=== PATIENT | male | born 1990 | race Caucasian/White ===

== ENCOUNTER 2016-08-01 08:14 | Emergency (ER) | payer OTHER ==
[2016-08-01 08:24] VITALS: BP 147/99
--- NOTE | 2016-08-01 08:34 | EDM.PDOC ---
ED HPI GENERAL MEDICAL PROBLEM - General Chief Complaint: Upper Extremity Injury/Pain Stated Complaint: box fell on arm Time Seen by Provider: 08/01/16 08:28 Source of Information: Reports: Patient, RN, RN Notes Reviewed History Limitations: Reports: No Limitations - History of Present Illness INITIAL COMMENTS - FREE TEXT/NARRATIVE: Patient presents to the ED at [facility] after he sustained a crush injury to the right arm at work. Patient states he was unloading boxes from a [employer] trailer when his elbow got stuck against a wall as a 45-50 pound box landed on his right forearm and right wrist. Patient states he feels some tingling of the right fingers. No numbness or paresthesia of the right upper extremity. No previous injury or trauma to the right arm/wrist. No previous right upper extremity surgeries. Onset: Today Onset Date: 08/01/16 Onset Time: 08:00 Right Wrist Pain Score (Numeric/FACES): 6 - Related Data Allergies Allergy/AdvReac Type Severity Reaction Status Date / Time No Known Allergies Allergy Verified 08/01/16 08:26 Home Meds: Home Meds . [No Known Home Meds] 08/01/16 [History] Past Medical History - Past Health History Medical/Surgical History: Denies Medical/Surgical History Social & Family History - Tobacco Use Smoking Status *Q: Current Every Day Smoker Years of Tobacco use: 8 Packs/Tins Daily: 0.1 Review of Systems - Review of Systems Review Of Systems: See Below Constitutional: Denies: Chills, Fever, Weakness Respiratory: Denies: Shortness of Breath, Cough Cardiovascular: Denies: Chest Pain, Palpitations Musculoskeletal: Reports: Arm Pain, Muscle Pain, Muscle Stiffness Skin: Reports: Wound (abrasion to volar surface of right wrist) Neurological: Reports: Tingling. Denies: Numbness, Paresthesia ED EXAM, GENERAL - Physical Exam Exam: See Below Exam Limited By: No Limitations General Appearance: Alert, No Apparent Distress Respiratory/Chest: No Respiratory Distress, Lungs Clear, Normal Breath Sounds Cardiovascular: Regular Rate, Rhythm Peripheral Pulses: 2+: Radial (L), Radial (R) Extremities: Normal Capillary Refill, Limited Range of Motion (wrist, right) Neurological: Alert, Oriented Skin Exam: Warm, Dry, Normal Color, No Rash, Wound/Incision (abrasion to volar surface right wrist) Course - Vital Signs Last Recorded V/S: Last Vital Signs Temp 36.8 C 08/01/16 08:18 Pulse 81 08/01/16 08:18 Resp 14 08/01/16 08:18 BP 147/99 H 08/01/16 08:18 Pulse Ox 97 08/01/16 08:18 - Orders/Labs/Meds Orders: Active Orders 24 hr Category Date Time Status Forearm 2V Rt [CR] Stat Exams 08/01/16 08:28 Ordered Wrist Comp Min 3V Rt [CR] Stat Exams 08/01/16 08:28 Taken Departure - Departure Time of Disposition: 09:13 Disposition: Home, Self-Care 01 Condition: Good Clinical Impression: Encounter related to worker's compensation claim, Forearm tendonitis Crushing injury of forearm, right Qualifiers: Encounter type: initial encounter Qualified Code(s): S57.81XA - Crushing injury of right forearm, initial encounter Abrasion of wrist, right Qualifiers: Encounter type: initial encounter Qualified Code(s): S60.811A - Abrasion of right wrist, initial encounter - Discharge Information Instructions: Wrist Pain, Abrasion, [id number] Referrals: PCP,None [Primary Care Provider] - Forms: ED Department Discharge Additional Instructions: 1. Stay well hydrated and rest 2. Follow working restrictions on forms, these are in effect until 08/08/2016 3. Rest, elevate, and ice right forearm today 4. May alternate Tylenol/Advil as needed for discomfort 5. See your Primary as symptoms warrant - Problem List Review Problem List Initiated/Reviewed/Updated: Yes - My Orders Last 24 Hours: My Active Orders 08/01/16 08:28 Forearm 2V Rt [CR] Stat Wrist Comp Min 3V Rt [CR] Stat - Assessment/Plan Last 24 Hours: My Active Orders 08/01/16 08:28 Forearm 2V Rt [CR] Stat Wrist Comp Min 3V Rt [CR] Stat
== END 2016-08-01 09:19 | disposition home or self-care (01) ==
LOC: VM.ED 08:14
DX: S57.81XA Crushing injury of right forearm, initial encounter (principal); S60.811A Abrasion of right wrist, initial encounter; M77.9 Enthesopathy, unspecified; F17.210 Nicotine dependence, cigarettes, uncomplicated; W20.8XXA Other cause of strike by thrown, projected or falling object, initial encounter; Y93.89 Activity, other specified; Y99.0 Civilian activity done for income or pay
CPT/HCPCS: 73090-RT; 73110-RT; 99283

== ENCOUNTER 2020-08-29 10:30 | Emergency (ER) | payer OTHER ==
[2020-08-29] MEDS ORDERED: Sodium Chloride 0.9% 10 ML Syringe FLUSH PRN (10:49)
--- NOTE | 2020-08-29 10:56 | EDM.PDOC ---
ED HPI GENERAL MEDICAL PROBLEM - General Time Seen by Provider: 08/29/20 10:41 Source of Information: Reports: Patient, Family - History of Present Illness INITIAL COMMENTS - FREE TEXT/NARRATIVE: David is a 30 y/o male who is sent the ER from the clinic. He had showed up there to be checked out. Apparently last night he had an episode of confusion and he had thrown his supper on the floor. His significant other had reported he was lying in bed eating a TV dinner about 7 pm and then when she returned to the bedroom he was confused and the food was on the floor. Patient denies recalling any of this. Then this AM about 0442, family reported that he woke up and started seizing in bed. The seizure activity lasted about 1 minute and then he was very drowsy. He does report a seizure as a child, but nothing since then. He did have an incident last Friday at work where he hit his head on a disc very hard and he really felt "dizzy and nauseated following". - Related Data Allergies Allergy/AdvReac Type Severity Reaction Status Date / Time No Known Allergies Allergy Verified 08/01/16 08:26 Home Meds: Home Meds levETIRAcetam [Keppra] 750 mg PO BID #60 tab 08/29/20 [Rx] Past Medical History - Past Health History Medical/Surgical History: Denies Medical/Surgical History Review of Systems - Review of Systems Review Of Systems: See Below Constitutional: Reports: No Symptoms Eyes: Reports: No Symptoms Ears: Reports: No Symptoms Nose: Reports: No Symptoms Mouth/Throat: Reports: No Symptoms Respiratory: Reports: No Symptoms Cardiovascular: Reports: No Symptoms GI/Abdominal: Reports: No Symptoms Genitourinary: Reports: No Symptoms Musculoskeletal: Reports: No Symptoms Skin: Reports: No Symptoms Neurological: Reports: Confusion, Other (Seizure, Amnesia) Psychiatric: Reports: No Symptoms ED EXAM, GENERAL - Physical Exam Exam: See Below Exam Limited By: No Limitations General Appearance: Alert, WD/WN, No Apparent Distress (Adult male, ambulated into the ER) Ears: Normal External Exam, Normal Canal, Hearing Grossly Normal, Normal TMs Nose: Normal Inspection, Normal Mucosa Throat/Mouth: Normal Inspection, Normal Lips, Normal Teeth, Normal Voice Head: Atraumatic, Normocephalic Neck: Normal Inspection, Supple, Non-Tender Respiratory/Chest: No Respiratory Distress, Lungs Clear, Chest Non-Tender Cardiovascular: Normal Peripheral Pulses, Regular Rate, Rhythm, No Murmur GI/Abdominal: Normal Bowel Sounds, Soft, Non-Tender (Male) Exam: Deferred Rectal (Males) Exam: Deferred Back Exam: Normal Inspection, Full Range of Motion Extremities: Normal Inspection, Normal Range of Motion, No Pedal Edema, Normal Capillary Refill Neurological: Alert, Oriented, CN II-XII Intact, Normal Cognition, Normal Gait, No Motor/Sensory Deficits Psychiatric: Normal Affect, Normal Mood Skin Exam: Warm, Dry, Intact, Normal Color #1 Interpretation EKG Date: 08/29/20 Time: 10:48 Rhythm: NSR Rate (Beats/Min): 73 [place]: Normal P-Wave: Present QT: Normal Comparison: NA - No Prior EKG EKG Interpretation Comments: NSR Course - Vital Signs Text/Narrative:: 1041 The patient was a seen by the DIRECTOR OF [employer]ATIONAL SALES. Labs, EKG, and Head CT ordered. 1220 No seizure activity noted in ER. Some labs returning. CBC neg, CMP neg, Mg=2.1, TSH=2.053, CRP=<0.2, Troponin I=8, EKG neg. Remaining labs pending. 1420 [facility] contacted and Neurologist litigation attorney, Dr Gonzalez, consulted. Reviewed CT results with Dr Gonzalez and course of events. She advises that we start him on Keppra 750mg po BID and then have him follow up with his PCP to set him up for an Brain MRI With and Without contrast to assess the fluid noted on the CT. Also set him up for an EEG and then get him a referral appt to see Neurology. Discussed discharge instructions with the patient and his family and he left the ER in stable condition. No seizure activity noted while here in the ER. Last Recorded V/S: Last Vital Signs Temp 36.7 C 08/29/20 10:45 Pulse 80 08/29/20 14:26 Resp 18 08/29/20 14:26 BP 137/80 08/29/20 14:26 Pulse Ox 97 08/29/20 14:26 - Orders/Labs/Meds Orders: Active Orders 24 hr Category Date Time Status EKG Documentation Completion [RC] STAT Care 08/29/20 10:48 Active Sodium Chloride 0.9% [Saline Flush] Med 08/29/20 10:49 Active 10 ml FLUSH ASDIRECTED PRN Saline Lock Insert [OM.PC] Stat Oth 08/29/20 10:48 Ordered Medication Orders Sodium Chloride (Sodium Chloride 0.9% 10 Ml Syringe) 10 ml FLUSH ASDIRECTED PRN PRN Reason: Keep Vein Open Labs: Laboratory Tests 08/29/20 08/29/20 08/29/20 Range/Units 11:10 11:10 12:44 WBC 7.5 (4.0-10.0) x10^3/uL RBC 5.29 (4.5-6.0) x10^6/uL Hgb 14.9 (14.0-18.0) g/dL Hct 43.4 (40.0-52.0) % MCV 82.0 (78.0-93.0) fL MCH 28.2 (26.0-32.0) pg MCHC 34.3 (32.0-36.0) g/dL RDW Coeff of Joy 14.1 (10.0-15.0) % Plt Count 238 (130-400) x10^3/uL Neut % (Auto) 60.7 (50.0-80.0) % Lymph % (Auto) 28.0 (25.0-50.0) % [place] % (Auto) 8.3 (2.0-11.0) % Eos % (Auto) 2.7 (0.0-4.0) % Baso % (Auto) 0.3 (0.2-1.2) % Sodium 140 (136-145) mmol/L Potassium 4.1 (3.5-5.1) mmol/L Chloride 105 (98-107) mmol/L Carbon Dioxide 30 (21-32) mmol/L Anion Gap 9.1 (5-15) mmol/L BUN 13 (7-18) mg/dL Creatinine 1.0 (0.70-1.30) mg/dL Est Cr Clr Drug Dosing TNP Estimated GFR (MDRD) > 60 Glucose 111 H (70-99) mg/dL Calcium 8.5 (8.5-10.1) mg/dL Corrected Calcium 8.7 (8.5-10.1) mg/dL Magnesium 2.1 (1.8-2.4) mg/dL Total Bilirubin 0.3 (0.2-1.0) mg/dL AST 21 (15-37) U/L ALT 56 (16-63) U/L Alkaline Phosphatase 61 (46-116) U/L Troponin I High Sens 8 (<=76) ng/L C-Reactive Protein < 0.2 (<=0.9) mg/dL Total Protein 7.8 (6.4-8.2) g/dL Albumin 3.7 (3.4-5.0) g/dL Globulin 4.1 Albumin/Globulin Ratio 0.90 TSH, Ultra Sensitive 2.053 (0.358-3.74) uIU/mL Urine Color Yellow (YELLOW) Urine Appearance Clear (CLEAR) Urine pH 5.5 (5.0-8.0) Ur Specific [place] >=1.030 Urine Protein Negative (NEGATIVE) mg/dL Urine Glucose (UA) Negative (NEGATIVE) mg/dL Urine Ketones Negative (NEGATIVE) mg/dL Urine Occult Blood Negative (NEGATIVE) Urine Nitrite Negative (NEGATIVE) Urine Bilirubin Negative (NEGATIVE) Urine Urobilinogen 0.2 (0.2) EU/dL Ur Leukocyte Esterase Negative (NEGATIVE) Urine Opiates Screen (NEGATIVE) Ur Buprenorphine Scrn (NEGATIVE) Ur Oxycodone Screen (NEGATIVE) Urine Methadone Screen (NEGATIVE) Ur Barbituates Screen (NEGATIVE) Ur Phencyclidine Scrn (NEGATIVE) Ur Amphetamines Screen (NEGATIVE) U Methamphetamines Scrn (NEGATIVE) Urine MDMA Screen (NEGATIVE) U Benzodiazepines Scrn (NEGATIVE) Urine Cocaine Screen (NEGATIVE) U Marijuana (THC) Screen (NEGATIVE) Ethyl Alcohol < 3 (0-3) mg/dL 08/29/20 Range/Units 12:44 WBC (4.0-10.0) x10^3/uL RBC (4.5-6.0) x10^6/uL Hgb (14.0-18.0) g/dL Hct (40.0-52.0) % MCV (78.0-93.0) fL MCH (26.0-32.0) pg MCHC (32.0-36.0) g/dL RDW Coeff of Joy (10.0-15.0) % Plt Count (130-400) x10^3/uL Neut % (Auto) (50.0-80.0) % Lymph % (Auto) (25.0-50.0) % [place] % (Auto) (2.0-11.0) % Eos % (Auto) (0.0-4.0) % Baso % (Auto) (0.2-1.2) % Sodium (136-145) mmol/L Potassium (3.5-5.1) mmol/L Chloride (98-107) mmol/L Carbon Dioxide (21-32) mmol/L Anion Gap (5-15) mmol/L BUN (7-18) mg/dL Creatinine (0.70-1.30) mg/dL Est Cr Clr Drug Dosing Estimated GFR (MDRD) Glucose (70-99) mg/dL Calcium (8.5-10.1) mg/dL Corrected Calcium (8.5-10.1) mg/dL Magnesium (1.8-2.4) mg/dL Total Bilirubin (0.2-1.0) mg/dL AST (15-37) U/L ALT (16-63) U/L Alkaline Phosphatase (46-116) U/L Troponin I High Sens (<=76) ng/L C-Reactive Protein (<=0.9) mg/dL Total Protein (6.4-8.2) g/dL Albumin (3.4-5.0) g/dL Globulin Albumin/Globulin Ratio TSH, Ultra Sensitive (0.358-3.74) uIU/mL Urine Color (YELLOW) Urine Appearance (CLEAR) Urine pH (5.0-8.0) Ur Specific [place] Urine Protein (NEGATIVE) mg/dL Urine Glucose (UA) (NEGATIVE) mg/dL Urine Ketones (NEGATIVE) mg/dL Urine Occult Blood (NEGATIVE) Urine Nitrite (NEGATIVE) Urine Bilirubin (NEGATIVE) Urine Urobilinogen (0.2) EU/dL Ur Leukocyte Esterase (NEGATIVE) Urine Opiates Screen Negative (NEGATIVE) Ur Buprenorphine Scrn Negative (NEGATIVE) Ur Oxycodone Screen Negative (NEGATIVE) Urine Methadone Screen Negative (NEGATIVE) Ur Barbituates Screen Negative (NEGATIVE) Ur Phencyclidine Scrn Negative (NEGATIVE) Ur Amphetamines Screen Negative (NEGATIVE) U Methamphetamines Scrn Negative (NEGATIVE) Urine MDMA Screen Negative (NEGATIVE) U Benzodiazepines Scrn Negative (NEGATIVE) Urine Cocaine Screen Negative (NEGATIVE) U Marijuana (THC) Screen Negative (NEGATIVE) Ethyl Alcohol (0-3) mg/dL Meds: Medications Generic Name Dose Route Start Last Admin Trade Name Freq PRN Reason Stop Dose Admin Sodium Chloride 10 ml 08/29/20 10:49 Sodium Chloride 0.9% 10 Ml Syringe FLUSH ASDIRECTED PRN Keep Vein Open - Radiology Interpretation Free Text/Narrative:: CT Head WO=no acute intracranial bleeding, note small arachnoid cyst with subdural hygroma or chronic hematoma in the right frontal lobe (See final report) Departure - Departure Time of Disposition: 14:37 Disposition: Home, Self-Care 01 Condition: Good Clinical Impression: Seizure, History of recent traumatic injury of head - Discharge Information Prescriptions: levETIRAcetam [Keppra] 750 mg PO BID #60 tab Instructions: Seizure, Adult, Managing Non-Epileptic Seizures, Adult Referrals: Cynthia Brewer MD [Primary Care Provider] - Additional Instructions: -Keppra 750mg po BID #60 (Rx) -Monitor for further seizure activity and report -Stay well hydrated -Make an appt to see a PCP at the [facility] for follow up and referral to Neurology for an EEG. PCP also to schedule MRI Brain With and Without contrast. -Return as needed to the ER for any concerns Sepsis Event Note (ED) - Focused Exam Vital Signs: Vital Signs Temp Pulse Resp BP Pulse Ox 08/29/20 14:26 80 18 137/80 97 08/29/20 12:00 68 18 130/82 97 08/29/20 11:07 77 16 154/92 H 98 08/29/20 10:45 36.7 C 69 16 160/96 H 98 - My Orders Last 24 Hours: My Active Orders 08/29/20 10:48 EKG Documentation Completion [RC] STAT Saline Lock Insert [OM.PC] Stat 08/29/20 10:49 Sodium Chloride 0.9% [Saline Flush] 10 ml FLUSH ASDIRECTED PRN - Assessment/Plan Last 24 Hours: My Active Orders 08/29/20 10:48 EKG Documentation Completion [RC] STAT Saline Lock Insert [OM.PC] Stat 08/29/20 10:49 Sodium Chloride 0.9% [Saline Flush] 10 ml FLUSH ASDIRECTED PRN Assessment:: 1)Seizure 2)Hx Recent Minor Head Trauma Plan: As above
[2020-08-29 11:44] LABS: CHLORIDE,CL 105 mmol/L (98-107); SODIUM,NA 140 mmol/L (136-145)
[2020-08-29 11:47] LABS: ANION GAP 9.1 mmol/L (5-15)
--- NOTE | 2020-08-29 12:40 | CT ---
[id number] CT/CT Head WO IV EXAM: NONCONTRAST HEAD CT INDICATION: SEIZURES X 2 IN LAST 24 HOURS. COMPARISON: None. DISCUSSION: A lentiform fluid density structure abutting the anterior convexity of the right frontal lobe is up to 9 mm in thickness may represent a small chronic subdural hematoma, hygroma or arachnoid cyst. The ventricles and sulci are otherwise normal in configuration. The gaffney and white matter are normal in attenuation. No mass effect or midline shift. No acute hemorrhage or extra-axial fluid collection. No acute territorial infarct is identified. A limited look at the orbits and paranasal sinuses is unremarkable. IMPRESSION: 1. No acute intracranial findings. 2. Small arachnoid cyst, subdural hygroma or chronic hematoma along the anterior convexity of the right frontal lobe. Jurgen Alarcon MD 08/29/20 [id number] Thank you for allowing us to participate in the care of your patient.
[2020-08-29 13:22] LABS: BUPRENORPHINE,URINE NEGATIVE (NEGATIVE); MARIJUANA,URINE NEGATIVE (NEGATIVE)
[2020-08-29 13:23] LABS: METHYLENEDIOXYMETHAMP,UR NEGATIVE (NEGATIVE); PHENCYCLIDINE,URINE NEGATIVE (NEGATIVE)
== END 2020-08-29 14:52 | disposition home or self-care (01) ==
LOC: VM.ED 10:30
DX: R56.9 Unspecified convulsions (principal); Z87.828 Personal history of other (healed) physical injury and trauma
CPT/HCPCS: 36415; 70450; 80053; 80305-QW; 80307; 81003; 83735; 84443; 84484; 85025; 86140; 93005; 93010; 99284; 99285-25

== ENCOUNTER 2021-04-25 12:16 | Emergency (ER) | payer OTHER ==
[2021-04-25] MEDS ORDERED: Ondansetron 4 MG Tab.DIS PO ONE (12:49)
== END 2021-04-25 13:03 | disposition home or self-care (01) ==
LOC: VM.ED 12:16
DX: S06.0X0A Concussion without loss of consciousness, initial encounter (principal); S00.03XA Contusion of scalp, initial encounter; S00.83XA Contusion of other part of head, initial encounter; W22.8XXA Striking against or struck by other objects, initial encounter; Y99.0 Civilian activity done for income or pay
CPT/HCPCS: 99283; A9270-GY

== ENCOUNTER 2023-01-27 00:43 | Emergency (ER) | payer OTHER ==
[2023-01-27] MEDS ORDERED: Acetaminophen/HYDROcodone 325-10 MG Tab PO ONE (00:55)
[2023-01-27] MEDS ORDERED: Take Home: Acetaminophen/Codeine 300 MG/30 MG, 5 Tab Pack PO ONE (01:38)
[2023-01-27] MEDS ORDERED: Ibuprofen 200 MG Tab PO ONE (01:39)
== END 2023-01-27 01:46 | disposition home or self-care (01) ==
LOC: VM.ED 00:43
DX: S20.20XA Contusion of thorax, unspecified, initial encounter (principal); Z79.899 Other long term (current) drug therapy; W01.198A Fall on same level from slipping, tripping and stumbling with subsequent striking against other object, initial encounter
CPT/HCPCS: 71046; 99284; A9270-GY

== ENCOUNTER 2024-07-29 09:25 | Emergency (ER) | payer BC ==
[2024-07-29] MEDS ORDERED: Sodium Chloride 0.9% 10 ML Syringe FLUSH PRN (09:27)
[2024-07-29 09:51] LABS: BASOPHILS PERCENT AUTO 0.3 % (0.2-1.2); EOSINOPHILS ABSOLUTE AUTO 0.1 x10^3/uL (0.0-0.5); EOSINOPHILS PERCENT AUTO 1.7 % (0.0-4.0); HEMATOCRIT 41.5 % (40.0-52.0); HEMOGLOBIN 14.6 g/dL (14.0-18.0); IMMATURE GRAN ABSOLUTE AUTO 0.02 x10^3/uL (0.00-0.07); LYMPHOCYTES ABSOLUTE AUTO 1.3 x10^3/uL (1.0-4.8); LYMPHOCYTES PERCENT AUTO 22.4 % (25.0-50.0); MEAN CORPUSCULAR HEMOGLOBIN 28.7 pg (26.0-32.0); MEAN CORPUSCULAR HGB CONC 35.2 g/dL (32.0-36.0); MEAN CORPUSCULAR VOLUME 81.7 fL (78.0-93.0); MONOCYTES ABSOLUTE AUTO 0.4 x10^3/uL (0.0-0.8); MONOCYTES PERCENT AUTO 6.3 % (2.0-11.0); NEUTROPHILS ABSOLUTE AUTO 4.1 x10^3/uL (1.8-7.7); PLATELET COUNT,PLT 252 x10^3/uL (130-400); RED BLOOD CELL COUNT 5.08 x10^6/uL (4.5-6.0); WHITE BLOOD CELL COUNT,WBC 5.9 x10^3/uL (4.0-10.0)
[2024-07-29 10:12] LABS: ALANINE AMINOTRANSFERASE,ALT 30 U/L (16-63); ALBUMIN 3.9 g/dL (3.4-5.0); ALKALINE PHOSPHATASE 63 U/L (46-116); ASPARTATE AMNIOTRANSFERASE,AST 17 U/L (15-37); BILIRUBIN TOTAL 0.6 mg/dL (0.2-1.0); BLOOD UREA NITROGEN,BUN 11 mg/dL (7-18); CALCIUM 8.9 mg/dL (8.5-10.1); CARBON DIOXIDE,CO2 27 mmol/L (21-32); CHLORIDE,CL 104 mmol/L (98-107); CREATININE 1.1 mg/dL (0.70-1.30); GLUCOSE RANDOM 126 mg/dL (70-99); MAGNESIUM 1.9 mg/dL (1.8-2.4); POTASSIUM,K 3.5 mmol/L (3.5-5.1); PRO B-TYPE NATRIUR PEPT,BNPPRO 15 pg/mL (<=125); PROTEIN TOTAL,TP 6.9 g/dL (6.4-8.2); SODIUM,NA 141 mmol/L (136-145)
[2024-07-29 10:13] LABS: ANION GAP 13.5 mmol/L (5-15); ESTIMATED GFR 91 mL/min (>=60)
== END 2024-07-29 10:36 | disposition home or self-care (01) ==
LOC: VM.ED 09:25
DX: R07.9 Chest pain, unspecified (principal); Z79.899 Other long term (current) drug therapy; Z79.811 Long term (current) use of aromatase inhibitors
CPT/HCPCS: 71045; 80053; 83735; 83880; 84484; 85025; 85610; 99285